=== PATIENT | female | born 1940 ===

== ENCOUNTER 2024-02-08 23:15 | Emergency (ER) | payer MEDICARE ==
[~2024-02-08] VITALS: Ht 167.6 cm; Wt 65.8 kg
[2024-02-08] MEDS ORDERED: SILVER NITRATE APPLICATOR 1 EACH APP T ONE (23:40)
== END 2024-02-09 00:16 | disposition home or self-care (01) ==
LOC: ED 23:15
DX: L76.21 Postprocedural hemorrhage of skin and subcutaneous tissue following a dermatologic procedure (principal); E78.5 Hyperlipidemia, unspecified; Z88.0 Allergy status to penicillin; Z88.2 Allergy status to sulfonamides; Y84.8 Other medical procedures as the cause of abnormal reaction of the patient, or of later complication, without mention of misadventure at the time of the procedure